=== PATIENT | female | born 1960 | race Caucasian/White ===

== ENCOUNTER 2019-02-14 05:48 | Day surgery (SDC) | payer OTHER ==
[~2019-02-14 05:48] MED LIST: ANAPROX275 MG; MOBIC7.5 M1 PO; PANADOL EXTRA500 MG; TENORMIN25 MG
[2019-02-14] MEDS ORDERED: MACROBID 100 M100 MG PO (11:24)
[2019-02-14] MEDS ORDERED: ULTRACET PO (11:24)
== END 2019-02-14 17:45 | disposition home or self-care (01) ==
LOC: CIR.AMB 05:48
DX: R39.15 Urgency of urination (principal); R39.14 Feeling of incomplete bladder emptying

== ENCOUNTER 2020-07-16 05:49 | Day surgery (SDC) | payer OTHER ==
[~2020-07-16 05:49] MED LIST changes: +ATORVASTATIN CA10 MG PO; +COZAAR25 MG PO; +MACROBID 100 M100 MG PO; +ULTRACET PO; +VOLTAREN100 GM TOP
[2020-07-16] MEDS ORDERED: MACROBID 100 M100 MG PO (11:25)
== END 2020-07-16 15:45 | disposition home or self-care (01) ==
LOC: CIR.AMB 05:49
PROVIDERS: ATTEND Obstetrics & Gynecology Gynecology
DX: N31.8 Other neuromuscular dysfunction of bladder (principal); Z20.828 Contact with and (suspected) exposure to other viral communicable diseases
CPT/HCPCS: 57288; C1771